=== PATIENT | female | born 1985 | race Caucasian/White ===

== ENCOUNTER → 2018-01-13 | Outpatient (CLI) | payer OTHER ==
[~2018-01-13] VITALS: Ht 160 cm; Wt 92.0 kg
[~2018-01-13] MED LIST: CHROMAGEN,1 CAPSULE PO; IBUPROFEN800 MG PO
[2018-01-13 09:05] VITALS: BP 109/66
== END | disposition home or self-care (01) ==
LOC: IVINF 01-11 13:00
DX: O03.9 Complete or unspecified spontaneous abortion without complication (principal); Z67.11 Type A blood, Rh negative
CPT/HCPCS: 96372; J2790

== ENCOUNTER 2018-01-22 13:35 | Day surgery (SDC) | payer OTHER ==
[~2018-01-22] VITALS: Ht 160 cm; Wt 95.5 kg
[2018-01-22 13:57] VITALS: BP 123/60
[2018-01-22 14:00] VITALS: BP 123/60
[2018-01-22 14:03] LABS: BASOPHIL (%) 0.4 % (0-1); EOSINOPHIL (%) 0.8 % (0-5); EOSINOPHIL COUNT 0.1 K/uL (0-0.3); HEMOGLOBIN 13.1 G/DL (11.9-15.5); IMMATURE GRANULOCYTE (%) 0.4 % (0.0-0.7); LYMPHOCYTE (%) 30.6 % (15-42); LYMPHOCYTE COUNT 2.5 K/uL (1.0-2.8); MCH 28.8 PG (29.0-34.0); MCHC 33.6 G/DL (30.0-36.0); MCV 85.7 FL (83-99); MONOCYTE (%) 5.1 % (3-12); MONOCYTE COUNT 0.4 K/uL (0-0.8); NEUTROPHIL (%) 62.7 % (45-76); NEUTROPHIL COUNT 5.2 K/uL (1.8-6.4); PLATELET COUNT 221 K/uL (156-360); RBC DIS.WIDTH-CV 13.5 % (11.8-14.6); RBC DIS.WIDTH-SD 41.9 % (39-53); RED BLOOD COUNT 4.55 M/uL (3.80-5.20); WHITE BLOOD COUNT 8.3 K/uL (4.1-10.2)
[2018-01-22] MEDS ORDERED: IBUPROFEN800 MG PO (15:37)
[2018-01-22] MEDS ORDERED: HYDROCODON-ACE1 EAC7 PO (15:37)
[2018-01-22 17:10] VITALS: BP 94/51
[2018-01-22 17:30] VITALS: BP 100/60
== END 2018-01-22 17:45 | disposition home or self-care (01) ==
LOC: SDC 13:35
PROVIDERS: Obstetrics & Gynecology
DX: O00.102 Left tubal pregnancy without intrauterine pregnancy (principal); K66.1 Hemoperitoneum; L65.9 Nonscarring hair loss, unspecified; Z82.49 Family history of ischemic heart disease and other diseases of the circulatory system; Z82.3 Family history of stroke; Z80.49 Family history of malignant neoplasm of other genital organs
CPT/HCPCS: 85025; 86850; 86870; 86900; 86901; 86905; 86920; 88305; J0131; J1100; J1170; J1885; J2250; J2405; J2710; J2765; J3010; J7643; S0020